=== PATIENT | female | born 1965 | race Caucasian/White ===

== ENCOUNTER → 2018-02-20 15:54 | Outpatient (CLI) | payer BC, SELFPAY ==
--- NOTE | 2018-02-20 15:57 | BI_ITS ---
MAMMOGRAPHY - BILATERAL SCREENING REASON FOR EXAM: Female, 52 years old. Routine annual screening examination. PERTINENT HISTORY: Non-contributory. TECHNIQUE: Digital bilateral breast roland (3D mammographic acquisition) in the CC and MLO projections. 2-D mediolateral oblique (MLO) and craniocaudad (CC) views of both breasts were obtained. CAD: Full Field Digital Mammography with Computer Added Detection was performed. COMPARISON: Comparison is made with prior study dated September 06, 2015 and March 27, 2014. FINDINGS: Breast Composition: The breasts are heterogeneously dense, which may obscure small masses. There are no dominant masses or suspicious calcifications. No other significant abnormalities are identified. There has been no significant change since the prior study. BI/SCREENING MAMM (CAD), BILAT IMPRESSION: Stable bilateral screening mammogram. Yearly follow-up mammogram recommended. (A) ASSESSMENT CATEGORY: BIRADS Category 1: Negative. A letter regarding these results will be sent to the patient by the facility within 30 days. Approximately 10% of breast cancers are not detected by mammography. A normal mammogram should not delay biopsy of a clinically suspicious abnormality. [id number] Electronically Signed: Junito Brizuela MD at 10:01 EST Tel [phone], Service support ,
--- OUTSIDE RECORDS SUMMARY | 2018-04-27 15:29 | XMS RPT_ITS ---
:1965 Author Organization [facility] Care Team Providers Name Role Phone YENI ELLIS Attending Unavailable YENI ELLIS Referring Unavailable Luz Jones Attending Unavailable Karen, Luz Referring Unavailable Karen Luz Primary Care Unavailable PROBLEMS PROBLEMS No Problem Records FoundPROCEDURES PROCEDURES No Procedure Records FoundRESULTS RESULTS SCREENING MAMM (CAD), Observed: 02/20/2018 Status: F Source: [place] 3:57 PM [facility] [place], [place] REPOSITORY [facility] Imaging Services [address] [id number] SCREENING MAMM (CAD), BILAT MR#: [id number] Acct: [id number] Name: YOSEF MENJIVAR Rep #: [id number] : 1965 F 52 From: Junito Brizuela MD PCP: Luz Jones MD Status: REG CLI Study: SCREENING MAMM (CAD), BILAT Date of Exam: 02/20/18 Exam# [id number] Ordering Dr: Luz Jones MD MAMMOGRAPHY - BILATERAL SCREENING REASON FOR EXAM: Female, 52 years old. Routine annual screening examination. PERTINENT HISTORY: Non-contributory. TECHNIQUE: Digital bilateral breast roland (3D mammographic acquisition) in the CC and MLO projections. 2-D mediolateral oblique (MLO) and craniocaudad (CC) views of both breasts were obtained. CAD: Full Field Digital Mammography with Computer Added Detection was performed. COMPARISON: Comparison is made with prior study dated September 06, 2015 and March 27, 2014. FINDINGS: Breast Composition: The breasts are heterogeneously dense, which may obscure small masses. There are no dominant masses or suspicious calcifications. No other significant abnormalities are identified. There has been no significant change since the prior study. BI/SCREENING MAMM (CAD), BILAT IMPRESSION: Stable bilateral screening mammogram. Yearly follow-up mammogram recommended. (A) ASSESSMENT CATEGORY: BIRADS Category 1: Negative. A letter regarding these results will be sent to the patient by the facility within 30 days. Approximately 10% of breast cancers are not detected by mammography. A normal mammogram should not delay biopsy of a clinically suspicious abnormality. 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 Patricia Menjivar presents for removal of IUD due to Menopausal status and expiration . PROCEDURE: Speculum placed in vagina, IUD string visualized and grasped with ring forceps. ASSESSMENT/PLAN: IUD removed without difficult and patient tolerated procedure well. Contraception plans: none Yeni Lomax MD CNOV Observed: 03/07/2017 Status: COMPLETED Source: [place] 3:10 PM [facility] REPOSITORY Office Visit (WOOB) PATRICIA MENJIVAR ([id number]) 1965 F Date Time Provider Department 03/07/17 3:10 PM YENI ELLIS WOSONIA During your visit today, we recorded the following information about you: Blood pressure Weight 104/60 60.3 kg Yeni Lomax MD 03/07/2017 3:36 PM Signed Blade Worker offered: Patient declines. Patricia Menjivar presents for removal of IUD due to Menopausal status and expiration . PROCEDURE: Speculum placed in vagina, IUD string visualized and grasped with ring forceps. ASSESSMENT/PLAN: IUD removed without difficult and patient tolerated procedure well. Contraception plans: none Yeni Lomax MD Referring Provider: YENI ELLIS [[id number]] Allergies As of Date: 03/07/2017 (No Known Allergies) Date Reviewed: 03/07/2017 Reviewed by: Lidia Magana Ma - Fully Assessed Reason for Visit: IUD Removal [1951] Primary Visit Diagnosis:Encounter for IUD removal [Z30.432] Order(s):REMOVE INTRAUTERINE DEVICE [[id number]] Order #: [id number] Prescriptions as of 03/07/2017 Sig: ESTROVEN ORAL Take by mouth once daily. MULTIVITAMIN ORAL Take by mouth once daily. POTASSIUM-99 ORAL Take by mouth once daily. MAGNESIUM (OXIDE/AA CHELATE) * Take by mouth once daily. ZINC once daily. COQ10 SG 100 ORAL Take by mouth once daily. IV CONTRAST (RADIOLOGY PROCED* CT Urogram WO/W Inject, intra* TIMOLOL OPHTHALMIC Use in eyes. CILOSTAZOL 100 MG TABLET Take 1 tablet by mouth twice * CITALOPRAM 40 MG TABLET Take 225 mg by mouth once bethany* AMLODIPINE 10 MG TABLET Take 1 tablet by mouth once d* LATANOPROST 0.005 % EYE DROPS Use 1 Drop in both eyes daily* Problem List As Of Date 03/07/2017 Noted Resolved Glaucoma [H40.9] INVALID FOR* Premenopausal menorrhagia [N92.4] INVALID FOR* Abnormal mammogram, unspecified [R92.8] INVALID FOR*10/24/2012 Gross hematuria [R31.0] INVALID FOR*06/14/2016 Pelvic pressure in female [R10.2] INVALID FOR* Nephrolithiasis [N20.0] INVALID FOR* Disposition: Return if symptoms worsen or fail to improve, for Routine annual exam. Follow-up and Disposition History Recorded Encounter Status:Closed by YENI LIEBERMAN MD on 03/07/17 ALLERGIES ALLERGIES DATE TYPE / CODE NAME / CODE REACTION SEVERITY SOURCE 02/07/2014 Drug No Known Unknown [facility] Allergy/416 Allergies/[id number] Hospital [id number](SNOM 0388(RXNORM) Repository ED CT) Drug NO KNOWN [facility] Class/87371 ALLERGIES [place] 1003(SNOMED Repository CT) ENCOUNTERS ENCOUNTERS ADMIT/DISCHARGE ACCOUNT ADMITTING ENCOUNTER LOCATION SOURCE NUMBER CLASS 02/20/2018 [id number] [facility] ing:OPBI Repository 03/07/2017/03/09/19 [id number] Ambulatory [address] Repository PAYERS PAYERS ENCOUNTER GUARANTOR PAYER SUBSCRIBER SOURCE 02/20/2018 [facility] [id number] Primary [facility] LINDSEYB: [id number] Number: [facility] [address]Vkc: (675) [id number] Repository [phone] (HP) bernard Date:[id number] [place] [address] 92873YN: 02/20/2018 Secondary NOT GIVENUNK [place] Insurance:SELF PAY [facility] Number: Effective Repository Date:2017-12-10
== END ==
PROVIDERS: Family Provider Family Medicine; PCP Family Medicine; Referring Provider Family Medicine; Visit Provider Family Medicine
DX: Z12.31 Encounter for screening mammogram for malignant neoplasm of breast (principal)
CPT/HCPCS: 77063; 77067

== ENCOUNTER → 2018-07-24 16:47 | Outpatient (CLI) | payer BC, SELFPAY ==
[2018-07-24 17:42] LABS: Absolute Lymphocyte Count 2.29 X10^3/ul (0.83-4.51); Basophil# 0.03 X10^3/uL; Basophil% 0.6 % (0-1); Eosinophil# 0.12 X10^3/uL; Eosinophils% 2.5 % (0-5); Hematocrit 41.6 % (37-47); Hemoglobin 13.7 g/dl (12.0-15.0); Lymphocyte # 2.29 X10^3/ul (4.0); Lymphocyte % 47.3 % (19-41); Mean Corp Hgb Conc 32.9 g/gl (32-36); Mean Corpuscular Hgb 31.3 pg (27.0-32.0); Mean Platelet Vol. 11.7 fl (6.2-12.0); Monocyte% 8.3 % (0-10); Neutrophil % 41.3 % (47-70); Platelet Count 223 K/mm3 (150-450); RBC Distribution Width CV 12.1 % (11.6-14.6); RBC Distribution Width SD 41.4 fl (35.1-43.9); Red Blood Count 4.38 M/mm3 (4.2-5.4); White Blood Count 4.8 K/mm3 (4.4-11.0)
[2018-07-24 17:50] LABS: POSITIVE COUNT NO; POSITIVE DIFFERENTIAL NO; POSITIVE MORPHOLOGY NO
[2018-07-24 18:25] LABS: ALB/GLOB Ratio 1.5 RATIO (0.9-2.4); AST(SGOT) 21 U/L (15-37); Alanine Aminotransfer ALT/SGPT 27 U/L (13-56); Albumin, Serum 4.1 g/dL (3.2-5.0); Alkaline Phosphatase 71 U/L (45-117); Anion Gap 5 (5-15); BUN 14 mg/dL (7-18); BUN/Creat Ratio 15.3 RATIO (10-20); Calcium,Total 9.2 mg/dL (8.5-10.1); Chloride 106 mmol/L (98-107); Creatinine, Serum 0.92 mg/dL (0.55-1.02); EST Glomerular Filtration Rate 68 mL/min (>60); Est Glom Filt Rate - Afr Amer 82 mL/min (>60); Globulin 2.8 g/dL (2.2-4.2); Glucose 77 mg/dL (74-106); Potassium 3.9 mmol/L (3.5-5.1); Protein, Total 6.9 g/dL (6.4-8.2); Sodium Level 140 mmol/L (136-145); Thyroid Stim Hormone (TSH) 1.54 uIU/mL (0.358-3.74)
== END ==
PROVIDERS: Family Provider Family Medicine; PCP Family Medicine; Referring Provider Family Medicine; Visit Provider Family Medicine
DX: R41.89 Other symptoms and signs involving cognitive functions and awareness (principal)
CPT/HCPCS: 36415; 80053; 84443; 85025

== ENCOUNTER → 2019-02-25 16:47 | Outpatient (CLI) | payer BC, SELFPAY ==
--- NOTE | 2019-02-25 16:50 | BI_ITS ---
MAMMOGRAPHY - BILATERAL SCREENING REASON FOR EXAM: Female, 53 years old. Routine annual screening examination. PERTINENT HISTORY: Non-contributory. TECHNIQUE: Digital bilateral breast magdy (3D mammographic acquisition) in the CC and MLO projections. 2-D mediolateral oblique (MLO) and craniocaudad (CC) views of both breasts were obtained. CAD: Full Field Digital Mammography with Computer Added Detection was performed. COMPARISON: Comparison is made with prior study dated February 20, 2018 and September 06, 2015. FINDINGS: Breast Composition: The breasts are heterogeneously dense, which may obscure small masses. There are no dominant masses or suspicious calcifications. No other significant abnormalities are identified. There has been no significant change since the prior study. BI/SCREEN MAMM (CAD) W/MAGDY BILAT IMPRESSION: Stable bilateral screening mammogram. Yearly follow-up mammogram recommended. (A) ASSESSMENT CATEGORY: BIRADS Category 1: Negative. A letter regarding these results will be sent to the patient by the facility within 30 days. Approximately 10% of breast cancers are not detected by mammography. A normal mammogram should not delay biopsy of a clinically suspicious abnormality. [id number] Electronically Signed: Junito Brizuela, at 8:43 EST , Service support ,
== END ==
PROVIDERS: Family Provider Family Medicine; PCP Family Medicine; Referring Provider Family Medicine; Visit Provider Family Medicine
DX: Z12.31 Encounter for screening mammogram for malignant neoplasm of breast (principal)
CPT/HCPCS: 77063; 77067

== ENCOUNTER → 2020-01-13 16:01 | Outpatient (CLI) | payer BC, SELFPAY ==
[2020-01-13 18:17] LABS: Absolute Lymphocyte Count 1.63 X10^3/uL (0.83-4.51); Absolute Neutrophil Count 2.7 X10^3/uL (2.0-7.7); Basophil# 0.03 X10^3/uL; Basophil% 0.6 % (0-1); Eosinophil# 0.04 X10^3/uL; Eosinophils% 0.8 % (0-5); Hematocrit 45.7 % (37-47); Hemoglobin 14.1 g/dL (12.0-15.0); Lymphocyte # 1.63 X10^3/ul (4.0); Lymphocyte % 34.3 % (19-41); Mean Corp Hgb Conc 30.9 g/dL (32-36); Mean Corpuscular Hgb 31.7 pg (27.0-32.0); Mean Corpuscular Volume 102.7 fL (81-99); Mean Platelet Vol. 11.7 fl (6.2-12.0); Monocyte% 8.4 % (0-10); NRBC Flagged by Analyzer 0 % (0-5); Neutrophil # 2.65 X10^3/uL (2.7-7.7); Neutrophil % 55.9 % (47-70); Platelet Count 259 K/mm3 (150-450); RBC Distribution Width CV 11.9 % (11.6-14.6); RBC Distribution Width SD 45.4 fl (35.1-43.9); Red Blood Count 4.45 M/mm3 (4.2-5.4); White Blood Count 4.8 K/mm3 (4.4-11.0)
[2020-01-13 18:53] LABS: ALB/GLOB Ratio 1.2 RATIO (0.9-2.4); AST(SGOT) 25 U/L (15-37); Alanine Aminotransfer ALT/SGPT 41 U/L (13-56); Alkaline Phosphatase 71 U/L (45-117); Anion Gap 7 (5-15); BUN 24 mg/dL (7-18); Calcium,Total 9.2 mg/dL (8.5-10.1); Chloride 106 mmol/L (98-107); Cholesterol 166 mg/dL (200); EST Glomerular Filtration Rate 79 mL/min (>60); Est Glom Filt Rate - Afr Amer 96 mL/min (>60); Globulin 3.3 g/dL (2.2-4.2); Glucose 83 mg/dL (74-106); High Density Lipoprotein 87 mg/dL; Potassium 3.8 mmol/L (3.5-5.1); Protein, Total 7.3 g/dL (6.4-8.2); Sodium Level 141 mmol/L (136-145); Thyroid Stim Hormone (TSH) 1.46 uIU/mL (0.358-3.74); Triglycerides 54 mg/dL; Very Low Density Lipoprotein 11 mg/dL (5-40)
== END ==
PROVIDERS: PCP Family Medicine; Visit Provider Family Medicine
DX: Z00.00 Encounter for general adult medical examination without abnormal findings (principal); R53.81 Other malaise; R53.83 Other fatigue
CPT/HCPCS: 36415; 80053; 80061; 84443; 85025

== ENCOUNTER → 2020-02-27 15:22 | Outpatient (CLI) | payer BC, SELFPAY ==
--- NOTE | 2020-02-27 15:26 | BI_ITS ---
MAMMOGRAPHY - BILATERAL SCREENING REASON FOR EXAM: Female, 54 years old. Routine annual screening examination. PERTINENT HISTORY: Non-contributory. TECHNIQUE: Digital bilateral breast magdy (3D mammographic acquisition) in the CC and MLO projections. 2-D mediolateral oblique (MLO) and craniocaudad (CC) views of both breasts were obtained. CAD: Full Field Digital Mammography with Computer Added Detection was performed. COMPARISON: Comparison is made with prior study dated 02/25/2019 and 02/20/2018. FINDINGS: Breast Composition: The breasts are heterogeneously dense, which may obscure small masses. There are no dominant masses or suspicious calcifications. No other significant abnormalities are identified. There has been no significant change since the prior study. BI/SCRN MAMM (CAD)W/MAGDY BILAT IMPRESSION: Stable bilateral screening mammogram. Yearly follow-up mammogram recommended. (A) ASSESSMENT CATEGORY: BIRADS Category 1: Negative. A letter regarding these results will be sent to the patient by the facility within 30 days. Approximately 10% of breast cancers are not detected by mammography. A normal mammogram should not delay biopsy of a clinically suspicious abnormality. [id number] Electronically Signed: Junito Brizuela MD at 8:08 EST , Service support ,
== END ==
PROVIDERS: PCP Family Medicine; Referring Provider Obstetrics & Gynecology; Visit Provider Obstetrics & Gynecology
DX: Z12.31 Encounter for screening mammogram for malignant neoplasm of breast (principal)
CPT/HCPCS: 77063; 77067

== ENCOUNTER → 2020-03-30 14:44 | Outpatient (CLI) | payer BC, SELFPAY ==
--- NOTE | 2020-03-30 14:55 | ECHOD_ITS ---
Reason For Study: MVP, RAYNAUDS DISEASE Procedure This was a 2D Doppler, Color Flow transthoracic echocardiogram. The study was technically difficult. Exam performed in department. Left Ventricle Normal LV size. Left ventricular systolic function is normal. The estimated ejection fraction is 60 %. No evidence for diastolic dysfunction. No regional wall motion abnormalities noted. Right Ventricle Normal RV size. Normal systolic function. Atria Normal left atrium. Normal right atrium. No doppler evidence for ASD. Mitral Valve There is no mitral annular calcification. Mild mitral valve prolapse. Mild (1+) mitral valve insufficiency. Tricuspid Valve Normal tricuspid valve. Trivial tricuspid valve insufficiency. Right ventricular systolic pressure estimated to be 26 mmHg. Aortic Valve The aortic valve is not well visualized. Pulmonic Valve The pulmonic valve is not well visualized. Great Vessels Normal sized aortic root. Pericardium/Pleural No pericardial effusion. MMode/2D Measurements & Calculations LVIDd: 3.2 cm IVSd: 0.84 cm Ao root diam: 3.0 cm LVIDs: 2.2 cm LVPWd: 0.76 cm RVDd: 2.7 cm FS: 29.8 % LAV(MOD-bp): 33.1 ml LVAd ap4: 22.7 cm2 SV(MOD-sp4): 30.9 ml LAV(MOD-bp) Indexed: 20.2 ml/m2 EDV(MOD-sp4): 59.0 ml LAV(MOD-sp2): 31.6 ml EDV(sp4-el): 62.1 ml LAV(MOD-sp4): 34.4 ml LVAs ap4: 14.4 cm2 ESV(MOD-sp4): 28.0 ml ESV(sp4-el): 28.1 ml EF(MOD-sp4): 52.4 % EF(sp4-el): 54.7 % SV(sp4-el): 33.9 ml LA A4 area: 14.1 cm2 LA dimension(2D): 2.6 cm RA A4 area: 9.3 cm2 Time Measurements MV dec time: 0.28 sec Doppler Measurements & Calculations MV E max hesham: 86.9 cm/sec Lat Peak E' Hesham: 15.5 cm/sec Med Peak E' Hesham: 11.2 cm/sec MV A max hesham: 61.6 cm/sec E/E' lat: 5.6 E/E' med: 7.8 MV E/A: 1.4 Ao V2 max: 123.2 cm/sec LV V1 max: 102.9 cm/sec PA V2 max: 82.7 cm/sec Ao max P.1 mmHg LV V1 max P.2 mmHg TR max hesham: 240.2 cm/sec TR max P.1 mmHg Interpretation Summary The study was technically difficult. Left ventricular systolic function is normal. The estimated ejection fraction is 60 %. Mild mitral valve prolapse. Mild (1+) mitral valve insufficiency. Trivial tricuspid valve insufficiency. Right ventricular systolic pressure estimated to be 26 mmHg. No evidence for diastolic dysfunction. Ordering Physician: Waqas Billingsley Referring Physician: Waqas Billingsley Performed By: Ama Carter RDCS
== END ==
PROVIDERS: PCP Family Medicine; Referring Provider Internal Medicine Interventional Cardiology; Visit Provider Internal Medicine Interventional Cardiology
DX: I73.00 Raynaud's syndrome without gangrene (principal); I34.1 Nonrheumatic mitral (valve) prolapse; I10 Essential (primary) hypertension
CPT/HCPCS: 93306

== ENCOUNTER 2021-03-01 15:58 | Outpatient (CLI) | payer BC, SELFPAY ==
--- NOTE | 2021-03-01 16:02 | BI_ITS ---
MAMMOGRAPHY - BILATERAL SCREENING REASON FOR EXAM: Female, 55 years old. Routine annual screening examination. PERTINENT HISTORY: Non-contributory. TECHNIQUE: Digital bilateral breast magdy (3D mammographic acquisition) in the CC and MLO projections. 2-D mediolateral oblique (MLO) and craniocaudad (CC) views of both breasts were obtained. CAD: Full Field Digital Mammography with Computer Added Detection was performed. COMPARISON: Comparison is made with prior study dated 02/27/2020 and 02/25/2019. FINDINGS: Breast Composition: The breasts are heterogeneously dense, which may obscure small masses. There are no dominant masses or suspicious calcifications. No other significant abnormalities are identified. There has been no significant change since the prior study. BI/SCRN MAMM (CAD)W/MAGDY BILAT IMPRESSION: Stable bilateral screening mammogram. Yearly follow-up mammogram recommended. (A) ASSESSMENT CATEGORY: BIRADS Category 1: Negative. A letter regarding these results will be sent to the patient by the facility within 30 days. Approximately 10% of breast cancers are not detected by mammography. A normal mammogram should not delay biopsy of a clinically suspicious abnormality. [id number] Electronically Signed: Junito Brizuela MD at 9:09 EST ,
== END 2021-03-01 23:59 | disposition short-term general hospital (02) ==
LOC: OPBI 16:00
PROVIDERS: PCP Family Medicine; Visit Provider Obstetrics & Gynecology
DX: Z12.31 Encounter for screening mammogram for malignant neoplasm of breast (principal)
CPT/HCPCS: 77063; 77067

== ENCOUNTER → 2022-03-14 | Outpatient (CLI) | payer BC, SELFPAY ==
--- NOTE | 2022-03-14 12:13 | BI_ITS ---
MAMMOGRAPHY - BILATERAL SCREENING REASON FOR EXAM: Female, 56 years old. Routine annual screening examination. PERTINENT HISTORY: Non-contributory. TECHNIQUE: Digital bilateral breast roland (3D mammographic acquisition) in the CC and MLO projections. 2-D mediolateral oblique (MLO) and craniocaudad (CC) views of both breasts were obtained. CAD: Full Field Digital Mammography with Computer Added Detection was performed. COMPARISON: Comparison is made with prior study dated 03/01/2021 and 02/27/2020. FINDINGS: Breast Composition: The breasts are heterogeneously dense, which may obscure small masses. There are no dominant masses or suspicious calcifications. No other significant abnormalities are identified. There has been no significant change since the prior study. BI/SCREENING MAMM (CAD), BILAT IMPRESSION: Stable bilateral screening mammogram. Yearly follow-up mammogram recommended. (A) ASSESSMENT CATEGORY: BIRADS Category 1: Negative. A letter regarding these results will be sent to the patient by the facility within 30 days. Approximately 10% of breast cancers are not detected by mammography. A normal mammogram should not delay biopsy of a clinically suspicious abnormality. [id number] Electronically Signed: Junito Brizuela MD at 13:16 EST ,
== END | disposition home or self-care (01) ==
LOC: OPBI 12:11
PROVIDERS: PCP Family Medicine; Referring Provider Family Medicine; Visit Provider Family Medicine
DX: Z12.31 Encounter for screening mammogram for malignant neoplasm of breast (principal)
CPT/HCPCS: 77067

== ENCOUNTER → 2023-03-20 | Outpatient (CLI) | payer BC, SELFPAY ==
--- NOTE | 2023-03-20 15:24 | BI_ITS ---
MAMMOGRAPHY - BILATERAL SCREENING REASON FOR EXAM: Female, 57 years old. Routine annual screening examination. PERTINENT HISTORY: Non-contributory. TECHNIQUE: Digital bilateral breast magdy (3D mammographic acquisition) in the CC and MLO projections. 2-D mediolateral oblique (MLO) and craniocaudad (CC) views of both breasts were obtained. CAD: Full Field Digital Mammography with Computer Added Detection was performed. COMPARISON: Comparison is made with prior study of March 14, 2022 and March 01, 2021. FINDINGS: Breast Composition: The breasts are heterogeneously dense, which may obscure small masses. There are no dominant masses or suspicious calcifications. No other significant abnormalities are identified. There has been no significant change since the prior study. BI/SCRN MAMM (CAD)W/MAGDY BILAT IMPRESSION: Stable bilateral screening mammogram. Yearly follow-up mammogram recommended. (A) ASSESSMENT CATEGORY: BIRADS Category 1: Negative. A letter regarding these results will be sent to the patient by the facility within 30 days. Approximately 10% of breast cancers are not detected by mammography. A normal mammogram should not delay biopsy of a clinically suspicious abnormality. [id number] Electronically Signed: Junito Brizuela MD at 8:55 EST ,
--- OUTSIDE RECORDS SUMMARY | 2023-03-20 19:46 | XMS RPT_ITS | CCD ---
Author Name Unknown Address [address] [place] [address] Organization [facility] Care Team Providers Care Insole And Outsole Preparer Name Role Phone Luz Jones Primary Care Provider [phone] LUZ JONES Primary Care Unavailable ELLYN ELLIS Referring Unavail able ELLYN ELLIS Attending Unavail able Medications Completed/Discontinued Medications Medication Drug Class(es) Dates Sig (Normalized) Sig (Original) amLODIPine 10 mg oral tablet (2 sources) Dihydropyridine Calcium Channel Ceci Start: 10-04-2012 take 1 tablet by mouth once daily amLODIPine (NORVASC) 10 mg tablet Take 1 tablet by mouth once daily. 0 10/04/2012 Active Problems Active Problems Problem Classification Problem Date Documented Date Episodic/Chronic Glaucoma (2 sources) Glaucoma; Translations: [Unspecified glaucoma] Onset: 08-28-2012 08-28-2012 Chronic Immunizations and screening for infectious disease (2 sources) Patient encounter status; Translations: [Encounter for screening for human papillomavirus (HPV)] Episodic Menopausal disorders (2 sources) Menorrhagia; Translations: [Excessive bleeding in the premenopausal period] Onset: 08-28-2012 08-28-2012 Chronic Other screening for suspected conditions (not mental disorders or infectious disease) (1 source) Cancer cervix screening status; Translations: [Encounter for screening for malignant neoplasm of cervix] Episodic Past or Other Problems Problem Classification Problem Date Documented Date Episodic/Chronic Abdominal pain (2 sources) Female genital organ symptoms; Translations: [Pelvic and perineal pain] Onset: 06-02-2016 06-02-2016 Episodic Calculus of urinary tract (2 sources) Kidney stone; Translations: [Calculus of kidney] Onset: 06-14-2016 06-14-2016 Episodic Sexually transmitted infections (not HIV or hepatitis) (2 sources) Human papillomavirus deoxyribonucleic acid test positive, high risk on cervical specimen; Translations: [Cervical high risk human papillomavirus (HPV) DNA test positive] Onset: 03-20-2022 Episodic Results Test Name Value Interpretation Reference Range Facil ity Vital Signs Date Time Vital Sign Value Performing Clinician Faci lity 03-20-2022 11:40-0500 Body weight 58.97 kg Ellyn Lieberman MD Work Phone: [facility] 03-20-2022 11:40-0500 Diastolic blood pressure 62 mm[Hg] Ellyn Lieberman MD Work Phone: [facility] 03-20-2022 11:40-0500 Systolic blood pressure 110 mm[Hg] Ellyn Lieberman MD Work Phone: [facility] 01-24-2022 11:17-0500 Body height 166.4 cm Ellyn Lieberman MD Work Phone: [facility] 01-24-2022 11:17-0500 Body weight 58.51 kg Ellyn Lieberman MD Work Phone: [facility] 01-24-2022 11:17-0500 Diastolic blood pressure 62 mm[Hg] Ellyn Lieberman MD Work Phone: [facility] 01-24-2022 11:17-0500 Systolic blood pressure 114 mm[Hg] Ellyn Lieberman MD Work Phone: [facility] Encounters Encounter Date Encounter Type Care Provider Facility Start: 03-20-2022 End: 03-21-2022 ambulatory LUZ JONES Facility:[facility] Start: 03-20-2022 End: 03-20-2022 Patient encounter procedure Ellyn Lieberman MD Work Phone: OB/Gynecology Procedures Date Procedure Procedure Detail Performing Clinician Start: 03-01-2021 Mammography Ellyn Lieberman MD Work Phone: Plan of Treatment Date Care Activity Detail Author Start: 01-24-2027 HPV TESTING HPV TESTING [facility] Start: 01-24-2027 PAP TESTING PAP TESTING [facility] Start: 01-21-2026 HPV TESTING HPV TESTING [facility] Start: 01-21-2026 PAP TESTING PAP TESTING [facility] Start: 03-01-2022 Mammography MAMMOGRAM [facility] Start: 02-05-2022 DEPRESSION ASSESSMENT DEPRESSION ASSESSMENT [facility] Start: 10-06-2021 Influenza vaccination INFLUENZA (#1) [facility] Start: 02-05-2021 DEPRESSION ASSESSMENT DEPRESSION ASSESSMENT [facility] Start: 2014 SHINGRIX VACCINE (1 of 2) SHINGRIX VACCINE (1 of 2) [facility] Start: 2009 COLOGUARD (FIT-DNA) COLOGUARD (FIT-DNA) [facility] Start: 2009 Colonoscopy COLONOSCOPY [facility] Start: 2009 COLORECTAL CANCER SCREENING COLORECTAL CANCER SCREENING [facility] Start: [address] COLONOGRAPHY [facility] Start: 2009 DIABETES SCREEN DIABETES SCREEN [facility] Start: 2009 FECAL OCCULT BLOOD FECAL OCCULT BLOOD [facility] Start: 2009 LIPID SCREEN LIPID SCREEN [facility] Start: 2009 SIGMOIDOSCOPY SIGMOIDOSCOPY [facility] Start: 08-09-1983 Urine microalbumin profile DTAP,TDAP,TD (1 - Tdap) [facility] Start: 1982 HEPATITIS C SCREENING HEPATITIS C SCREENING [facility] Start: 1982 HIV SCREENING HIV SCREENING [facility] Start: 02-08-1965 COVID-19 VACCINE (#1) COVID-19 VACCINE (#1) [facility] Start: 1964 HEPATITIS B (1 of 3 - 3-dose series) HEPATITIS B (1 of 3 - 3-dose series) [facility] COLPOSCOPY COLPOSCOPY Ariella garcia Routine Cervical high risk human papillomavirus (HPV) DNA test positive Ordered: 03/20/2022 [facility] Work Phone: Payers Date Payer Category Payer Unknown [employer] PPO OOS [id number] 2012-Present [phone] [address] [place] [address] PPO [id number] 2012 Unknown [id number] Social History Date Type Detail Facility Start: 01-24-2022 Tobacco smoking stat us PRIS Never smoked tobacco [facility] Start: 01-24-2022 Tobacco use and exposure Smoke less tobacco non-user [facility] Start: 01-24-2022 End: 03-20-2022 Alcohol intake Current drinker of alcohol (finding) [facility] Start: 08-28-2012 [facility] Start: 1965 Sex Assigned At Not on file [facility] Clinical Notes 06-02-2016 to 03-20-2022 Patient InstructionsEllyn Lieberman MD - 03/20/2022 11:36 AM ESTPatient InstructionsEllyn Lieberman MD - 01/24/2022 11:25 AM ESTBethyvonne [place] - 01/24/2022 11:13 AM EST Note Date & Type Note Facility 03-20-2022 Note HNO ID: [id number] Author: Ellyn Lieberman MD Service: ? Author Type: Physician Type: Progress Notes Filed: 03/20/2022 11:57 AM Note Text: [employer] offered: Patient declines. Gomez is a 56 year old who presents today for a colposcopy. The patient's last pap smear was Positive HPV from January 2022. Patient has a history of abnormal pap: Yes. The patient has had prior treatment: none. test: n/a UNIVERSAL PROTOCOL / SAFETY CHECKLIST Procedure to be Performed: colposcopy Sign In: A Moment of CARE was completed. Personnel directly involved with the procedure wore the appropriate PPE (Personal Protective Equipment). Patient/Surrogate Stated/Verified: PATIENT VERIFIED(optional for EMERGENT procedures): Patient name, Date of , Relevant allergies, and The intended procedure Time Out Communication: Intended patient and procedure match the source documents. Consent documented and matches the intended procedure. Sign Out: SIGN OUT (optional for EMERGENT procedures): No specimen collected. PROCEDURE: EXTERNAL GENITALIA: Normal in appearance without lesions VAGINA: Normal in appearance without lesions CERVIX: Speculum placed in vagina and excellent visualization of cervix achieved. Cervix swabbed x 3 with 3% acetic acid solution. Cervix grossly normal. Squamocolumnar junction visualized. No acetowhite changes, punctations, mosaicism or atypical vasculature noted. BIOPSY: Not done. ECC: not done HEMOSTASIS: NA Procedure Summary: Patient tolerated procedure well and colposcopy was adequate. ASSESSMENT: HPV effect PLAN: Repeat pap and hpv in one year Ellyn Lomax MD [facility] 03-20-2022 Instructions Lidia [place] - 03/20/2022 11:37 AM EST YOUR RECOVERY It may take a few weeks for your cervix to heal. While your cervix heals, you may have: - Vaginal bleeding (less than a normal menstrual period) - Mild cramping - A brown-black vaginal discharge (similar to coffee grounds) which is a result of the paste used to help stop bleeding from the procedure Do NOT put anything in the vagina for 1 week after your colposcopy if your doctor does a biopsy of your cervix. This includes sex, tampons, and douches. If you have any discomfort, you may take an over the counter pain medication (motrin, advil, ibuprofen, tylenol, etc). If this does not relieve your discomfort, contact your doctor's office for a prescription strength pain medication. It is okay to wear a sanitary pad until the discharge and spotting stops. RISKS Although problems seldom occur with colposcopy, there can be some complications. You may feel faint during and shortly after the procedure as well as have some bleeding and vaginal discharge after the procedure. There is also a risk of infection after the procedure. These complications are rare and can be easily treated. You should contact you doctor is you have any of the following: - Heavy bleeding (more than your normal period) - Bleeding with clots - Severe abdominal pain - Fever (more than 100.4F) - Foul smelling vaginal discharge RESULTS If a biopsy was taken, we will have the results of your biopsy in 1-2 weeks. If you do not hear the results of your biopsy after 2 weeks, please contact your physicians office for the results. Depending on the biopsy results, your doctor will determine your follow up plan which may include further testing or treatments. STAYING HEALTHY After the procedure, you will need to see your doctor for follow up visits during the year. At these visits your doctor will check the health of your cervix with a pap smear. After three normal pap smears, your doctor will allow you to return to having exams once a year. If you have another abnormal pap smear, you may need closer follow up for longer or you may need additional treatment. By making a few lifestyle changes after the procedure, you can help protect the health of your cervix: - Have regular pelvic exams and pap smears as ordered by your doctor. - Stop smoking as smoking increases your risk of developing a cancer of the cervix - If you have more than one sexual partner, limit your number of partners and use condoms to reduce your risks of STDs. If you have any additional questions, please contact your doctor's office. documented in this encounter [facility] 03-20-2022 History of Presen t illness Narrative [employer] offered: Patient declines. Gomez is a 56 year old who presents today for a colposcopy. The patient's last pap smear was Positive HPV from January 2022. Patient has a history of abnormal pap: Yes. The patient has had prior treatment: none. test: n/a UNIVERSAL PROTOCOL / SAFETY CHECKLIST Procedure to be Performed: colposcopy Sign In: A Moment of CARE was completed. Personnel directly involved with the procedure wore the appropriate PPE (Personal Protective Equipment). Patient/Surrogate Stated/Verified: PATIENT VERIFIED(optional for EMERGENT procedures): Patient name, Date of , Relevant allergies, and The intended procedure Time Out Communication: Intended patient and procedure match the source documents. Consent documented and matches the intended procedure. Sign Out: SIGN OUT (optional for EMERGENT procedures): No specimen collected. PROCEDURE: EXTERNAL GENITALIA: Normal in appearance without lesions VAGINA: Normal in appearance without lesions CERVIX: Speculum placed in vagina and excellent visualization of cervix achieved. Cervix swabbed x 3 with 3% acetic acid solution. Cervix grossly normal. Squamocolumnar junction visualized. No acetowhite changes, punctations, mosaicism or atypical vasculature noted. BIOPSY: Not done. ECC: not done HEMOSTASIS: NA Procedure Summary: Patient tolerated procedure well and colposcopy was adequate. ASSESSMENT: HPV effect PLAN: Repeat pap and hpv in one year Ellyn Lomax MD documented in this encounter [facility] 01-24-2022 Instructions Ellyn Lieberman MD - 01/24/2022 11:45 AM EST Images from the original note were not included. Miralax/Dulcolax Bowel Prep For this bowel preparation, you will need to purchase the following medications at any pharmacy: Over the counter Miralax (generic name is polyethylene glycol) 8.3 oz or 238 grams Four (4) Dulcolax (generic name is Bisacodyl) tablets 3 days prior to your procedure, you need to be on a low fiber diet (Such as popcorn, beans, seeds, nuts, salad and raw vegetables, corn, fresh and dried fruit and multi-grain bread) YOU MUST BE ON CLEAR LIQUIDS FOR 2 FULL DAYS PRIOR TO YOUR COLONOSCOPY Day one which would be two days before your colonoscopy, you will need to be on clear liquids all day. You may have coffee or tea-black only (no cream), clear broths (beef, chicken or vegetable), apple juice, white grape juice, pop, Gatorade, Powerade, lemonade, Jello, popsicles, Brian-aid, and water-But nothing red or dark purple in color and no dairy products, tomato or orange juices. Day two which would be the day before your colonoscopy continue clear liquids all day as above. And follow the instructions below: 8:00 AM - Mix the Miralax with 64 oz of Gatorade or another clear liquid of choice and place in refrigerator. Most people say the drink is better cold. 4:00 PM - Take 2 of the Dulcolax tablets with 8 oz of water. 6:00 PM - Start to drink the Miralax mixture. You must finish it by midnight. 8:00 PM - Take the other 2 Dulcolax tablets with 8 oz of water. You may continue to drink clear liquids while you are taking your prep and after you finish it as long as it is before midnight. Drink lots of fluids so you don t become dehydrated. Nothing to drink after midnight the night before the procedure unless you are instructed differently by the physician or nurses. Please remember to take your normal medications the morning of the procedure with a small sip of water especially your blood pressure medications. If you are diabetic, you need to contact your physician about how to take your diabetic medications and/or insulin during the prepping period and the day of your procedure. Any questions please call: Dr. Moreno or Dr. Garcia [phone] Silva Bartlett [phone] Dr. Gaona [phone] [facility] nurses [phone] documented in this encounter [facility] 01-24-2022 History of Presen t illness Narrative Patricia is a 56 year old who presents for an annual gynecologic exam without complaints. Some pain with initial penetration. Postmenopausal: Yes HRT use: No. Last Pap: 02/01/2021 normal HPV: 01/26/2021 positive History of abnormal pap: Yes Last mammogram: 2021 normal History of abnormal mammogram: No Sexually active: Yes History of STDS: HPV Patient concerns for STD exposure: No. Pain with intercourse: Yes Postcoital bleeding: No Hot flashes: Yes Night sweats: No Vaginal dryness: Yes Exercise: active Diet: balanced OB History T1 L3 SAB3 IAB0 Ectopic0 Multiple0 Live Births0 Audiology Director History LMP: 11/05/2012, Postmenopausal Age at Menarche: Age at First : Age at Menopause: Audiology Director History Comments: Sexual Activity: Yes; No partner data on record Contraception: No contraception data on record PAST MEDICAL HISTORY Diagnosis Date Glaucoma PAST SURGICAL HISTORY Procedure Laterality Date PAST SURGICAL HISTORY OF [address] Jc Clayton FAMILY HISTORY Problem Relation Age of Onset other (Lung Cancer) Father SOCIAL HISTORY Social History Tobacco Use Smoking status: Never Smokeless tobacco: Never Vaping Use Vaping Use: Never used Substance Use Topics Alcohol use: Yes Comment: seldom Drug use: No REVIEW OF SYSTEMS Abdomen: No abdominal pain, nausea, vomiting, diarrhea, or constipation. No bloating, early satiety, indigestion, or increased flatulence. Bladder: No dysuria, gross hematuria, urinary frequency, urinary urgency, or incontinence Breast: No breast lumps, nipple d/c, overlying skin changes, redness or skin retraction Allergies and current medication updated:Yes EXAM: BP 114/62 Ht 5' 5.5 (1.66m) Wt 129 lb (58.5kg) LMP 11/05/2012 BMI 21.13 kg/(m^2). GENERAL: pleasant, female in no apparent distress HEENT: Normocephalic, atraumatic, mucus membranes moist, and no lesions NECK: Supple, full range of motion, no adenopathy, and thyroid normal DERMATOLOGY: Normal, without lesions, non-icteric, and non-hirsute BREAST: soft, non-tender, symmetric, no dominant mass, normal nipple-areolar complex, no lymphadenopathy, and no nipple discharge ABDOMEN: soft, non-tender, and no masses PELVIC: external genitalia normal, normal Bartholin's glands, urethra, [place]'s glands, no vulvar lesions, no cervical lesions, good vaginal support, physiologic discharge present, normal appearing perineal body and perianal region. Atrophic changes BIMANUAL: uterus normal size, shape and consistency, no adnexal masses, and non-tender RECTOVAGINAL: deferred. NEURO: alert and oriented x3,exam grossly non-focal EXTREMITIES: normal ASSESSMENT/PLAN: 1) Health maintenance: Pap done with HPV. Mammogram ordered Mammogram up to date Nutrition, exercise and routine health maintenance exams reviewed. Calcium/Vitamin D supplementation information provided. Colon cancer screening: colonoscopy ordered 2) Follow up one year or sooner as needed Ellyn Lomax MD [employer] offered: Patient declines. documented in this encounter [facility] documented as of this encounter (statuses as of 01/24/2022) [facility] History of Past illness Narrative* Problem Noted Date Resolved Date Gross hematuria 06/02/2016 06/14/2016 Abnormal mammogram, unspecified 09/18/2012 10/24/2012 documented as of this encounter (statuses as of 03/20/2022) [facility]* Diagnosis Encounter for gynecological examination (general) (routine) without abnormal findings- Primary Screening for cervical cancer Screening for malignant neoplasm of the cervix Encounter for screening for human papillomavirus (HPV) Special screening examination for human papillomavirus (HPV) Special screening for malignant neoplasms, colon documented in this encounter [facility] note* Diagnosis Cervical high risk human papillomavirus (HPV) DNA test positive- Primary documented in this encounter [facility] for referral (narrative)* Outpatient Procedure (Routine) - Pending Review Specialty Diagnoses / Procedures Referred By Emir amador Referred To Contact [facility] Diagnoses Special screening for malignant neoplasms, colon Procedures COLONOSCOPY SCREENING COLONOSCOPY FLX DX W/COLLJ SPEC WHEN PFRMD Ellyn Ellis MD [address] [place] [address] [address] [place] [address] Referral ID Status Reason Start Date Expiration Date Visits Requested Visits Authorized [id number] Pending Review Auto-Generat ed Referral 2 01/24/2023 1 1 [facility] for referral (narrative)* Outpatient Procedure (Routine) - Pending Review Specialty Diagnoses / Procedures Referred By Emir amador Referred To Contact [facility] Diagnoses Cervical high risk human papillomavirus (HPV) DNA test positive Procedures COLPOSCOPY COLPOSCOPY CERVIX BX CERVIX & ENDOCRV CURRETAGE Ellyn Ellis MD [address] [place] [address] [facility] [address] [place] [address] Referral ID Status Reason Start Date Expiration Date Visits Requested Visits Authorized [id number] Pending Review Auto-Generat ed Referral 03/20/2022 03/20/[address] [facility] Summary Purpose Family History No Family History Records Found Advance Directives No Advanced Directives Records Found Additional Source Comments Source Comments (unrecognize d section and content) In the event this informatio n is protected by the Federal Confidentiality of Alcohol and Drug Abuse Patient Records regulations: The Federal rules restrict any use of the information to criminally investigate or prosecute any alcohol or drug abuse [facility] the event this information is protected by the Federal Confidentiality of Alcohol and Drug Abuse Patient Records regulations: The Federal rules restrict any use of the information to criminally investigate or prosecute any alcohol or drug abuse patient.[facility] Reason for Visit (unrecogniz ed section and content) Reason Comments Colposcopy Specialty Diagnoses / Procedures Referred By Emir amador Referred To Contact [facility] Diagnoses Cervical high risk HPV (human papillomavirus) test positive Procedures COLPOSCOPY COLPOSCOPY CERVIX BX CERVIX & ENDOCRV CURRETAGE Ellyn Ellis MD [address] [place] [address] [facility] [address] [place] [address] Referral ID Status Reason Start Date Expiration Date V isits Requested Visits Authorized [id number] Closed Auto-Generate d Referral 02/01/2022 02/01/2023 1 1 Care Teams (unrecognized sec tion and content) Insole And Outsole Preparer Relationship Specialty Start Date End Date Luz Jones PCP - General 09/09/09 INFORMATION SOURCE (unrecogn ized section and content) FOR RECORDS PERTAINING TO PATIENTS WHO ARE OR HAVE BEEN ENROLLED IN A CHEMICAL DEPENDENCY/SUBSTANCEABUSE PROGRAM, SOME INFORMATION MAY BE OMITTED. This clinical summary was aggregated from multiple sources. Caution should be exercised in using it in the provision of clinical care. This summary normalizes information from multiple sources, and as a consequence, information in this document may materially change the coding, format and clinical context of patient data. In addition, data may be omitted in some cases. CLINICAL DECISIONS SHOULD BE BASED ON THE PRIMARY CLINICAL RECORDS. [facility] [employer] [facility]. provides no warranty or guarantee of the accuracy or completeness of information in this document.
== END | disposition home or self-care (01) ==
LOC: OPBI 15:22
PROVIDERS: PCP Family Medicine; Referring Provider Obstetrics & Gynecology; Visit Provider Obstetrics & Gynecology
DX: Z12.31 Encounter for screening mammogram for malignant neoplasm of breast (principal)
CPT/HCPCS: 77063; 77067

== ENCOUNTER → 2024-03-15 | Outpatient (CLI) | payer BC, SELFPAY ==
[2024-03-15 08:03] LABS: Absolute Lymphocyte Count 1.38 X10^3/uL (0.83-4.51); Absolute Neutrophil Count 1.9 X10^3/uL (2.0-7.7); Basophil# 0.04 X10^3/uL; Basophil% 1.1 % (0-1); Eosinophil# 0.05 X10^3/uL; Eosinophils% 1.3 % (0-5); Hematocrit 41.1 % (37-47); Hemoglobin 13.4 g/dL (12.0-15.0); Lymphocyte # 1.38 X10^3/ul (0.83-4.51); Lymphocyte % 36.3 % (19-41); Mean Corp Hgb Conc 32.6 g/dL (32-36); Mean Corpuscular Hgb 32.5 pg (27.0-32.0); Mean Corpuscular Volume 99.8 fL (81-99); Mean Platelet Vol. 11.7 fl (6.2-12.0); Monocyte# 0.47 X10^3/uL; Monocyte% 12.4 % (0-10); NRBC Flagged by Analyzer 0 % (0-5); Neutrophil # 1.86 X10^3/uL (2.7-7.7); Neutrophil % 48.9 % (47-70); Platelet Count 243 K/mm3 (150-450); RBC Distribution Width SD 47.9 fl (35.1-43.9); Red Blood Count 4.12 M/mm3 (4.2-5.4); White Blood Count 3.8 K/mm3 (4.4-11.0)
[2024-03-15 09:06] LABS: ALB/GLOB Ratio 1.1 RATIO (0.9-2.4); AST(SGOT) 31 U/L (15-37); Alanine Aminotransfer ALT/SGPT 46 U/L (13-56); Albumin, Serum 3.5 g/dL (3.2-5.0); Alkaline Phosphatase 67 U/L (45-117); Anion Gap 4 (5-15); BUN 31 mg/dL (7-18); BUN/Creat Ratio 49.1 RATIO (10-20); Calcium,Total 9.1 mg/dL (8.5-10.1); Chloride 108 mmol/L (98-107); Cholesterol 162 mg/dL (200); Creatinine, Serum 0.63 mg/dL (0.55-1.02); EST Glomerular Filtration Rate 102 mL/min (>60); Est Glom Filt Rate - Afr Amer 124 mL/min (>60); Globulin 3.1 g/dL (2.2-4.2); Glucose 87 mg/dL (74-106); High Density Lipoprotein 92 mg/dL; Potassium 4.1 mmol/L (3.5-5.1); Protein, Total 6.6 g/dL (6.4-8.2); Sodium Level 142 mmol/L (136-145); Triglycerides 34 mg/dL; Very Low Density Lipoprotein 7 mg/dL (5-40)
== END | disposition home or self-care (01) ==
LOC: LAB 07:02
PROVIDERS: PCP Family Medicine; Referring Provider Nurse Practitioner Family; Visit Provider Nurse Practitioner Family
DX: Z00.01 Encounter for general adult medical examination with abnormal findings (principal)
CPT/HCPCS: 36415; 80053; 80061; 85025

== ENCOUNTER → 2024-07-29 | Outpatient (CLI) | payer BC, SELFPAY ==
--- NOTE | 2024-07-29 15:31 | BI_ITS ---
EXAM: SCRN MAMM (CAD)W/MAGDY BILAT DATE: 07/29/2024 CLINICAL HISTORY: F, Age 58 y/o , SCREENING TECHNIQUE: SCRN MAMM (CAD)W/MAGDY BILAT COMPARISON: Prior exam(s) were compared FINDINGS: TISSUE DENSITY: The breast tissue is heterogeneously dense, which may obscure small masses. Bilateral Breast Mammographic Findings: No suspicious masses, calcifications or other abnormalities are identified. BI/SCRN MAMM (CAD)W/MAGDY BILAT IMPRESSION: No mammographic evidence of malignancy in either breast OVERALL FINAL ASSESSMENT BI-RADS 1: NEGATIVE. RECOMMEND ANNUAL MAMMOGRAPHIC SCREENING. RECOMMENDATION: Routine annual follow-up in 1 Year A letter with findings and recommendations will be mailed to the patient. Reading Location: [id number]
== END | disposition home or self-care (01) ==
LOC: OPBI 15:30
PROVIDERS: PCP Nurse Practitioner Family; Referring Provider Nurse Practitioner Family; Visit Provider Nurse Practitioner Family
DX: Z12.31 Encounter for screening mammogram for malignant neoplasm of breast (principal)
CPT/HCPCS: 77063; 77067